=== PATIENT | male | born 1970 | race Caucasian/White ===

== ENCOUNTER 2019-12-17 10:58 | Emergency (ER) | payer BC ==
[2019-12-17] MEDS ORDERED: CYCLOBENZAPRINE 10MG STARTER 3 TAB BTL PO STA (11:36)
[2019-12-17] MEDS ORDERED: MORPHINE SULFATE 4 MG/ML SYRINGE IM STA (11:36)
--- NOTE | 2019-12-17 11:42 | ED ---
Back Pain HPI - General Chief Complaint: Back Pain/Injury Stated Complaint: sharp pain on sides and back Time Seen by Provider: 12/17/19 11:10 Source: patient Limitations: no limitations - History of Present Illness Initial Comments: 49 yo male presenting today for chief complaint of mid to low back pain. Patient states approximately 5 days ago he was doing a lot of heavy lifting/work and noticed back pain he states it has been present for the past 4 days, and increased today when he attempted to pull a heavy object. Patient denies chest pain, SOB, denies urinary symptoms or hematuria. He states it wraps around to the sides b/l increases with bending lifting. Patient denies loss of bowel bladder control urinary retention, IVDU, fever, history of cancer, denies leg swelling hemoptysis, denies numbness of the UE or LE. Patient appears well on arrival no acute distress, Grimaces when he moves. Patient denies any other complaints. Patient showed picture of object he attempted to lift. - Related Data Previous Rx's Medication Instructions Recorded HYDROcodone/APAP 7.5-325MG [[place] 1 tab PO Q6HR PRN #28 tab 02/28/16 7.5-325] Cyclobenzaprine [Flexeril] 10 mg PO TID PRN 7 Days #21 tab 12/17/19 Allergies Allergy/AdvReac Type Severity Reaction Status Date / Time No Known Allergies Allergy Verified 12/17/19 11:05 Review of Systems ROS Statement: Those systems with pertinent positive or pertinent negative responses have been documented in the HPI. ROS Other: All systems not noted in ROS Statement are negative. Past Medical History Past Medical History: Hypertension, Sleep Apnea/CPAP/BIPAP Additional Past Medical History / Comment(s): gout History of Any Multi-Drug Resistant Organisms: None Reported Past Surgical History: Cholecystectomy Past Anesthesia/Blood Transfusion Reactions: No Reported Reaction Past Psychological History: No Psychological Hx Reported Smoking Status: Former smoker Past Alcohol Use History: Occasional Past Drug Use History: None Reported - Past Family History Father Family Medical History: COPD Mother Family Medical History: Cancer Additional Family Medical History / Comment(s): breast General Exam - General Exam Comments Initial Comments: General: The patient is awake and alert, in no distress Eye: Pupils are equal, round and reactive to light, extra-ocular movements are intact. No nystagmus. There is normal conjunctiva bilaterally. No signs of icterus. Ears, nose, mouth and throat: There are moist mucous membranes and no oral lesions. Cardiovascular: There is a regular rate and rhythm. No murmur, rub or gallop is appreciated. Respiratory: Lungs are clear to auscultation, respirations are non-labored, breath sounds are equal. No wheezes, stridor, rales, or rhonchi. Gastrointestinal: Soft, non-distended, non-tender abdomen without masses or organomegaly noted. There is no rebound or guarding present. No CVA tenderness. Musculoskeletal: Upon inspection of the back there are numerous moles, skin tags, otherwise no bruising, swelling, redness, or vesicular lesions noted. No midline tenderness to palpation of the cervical thoracic or lumbar spine. Normal ROM, no tenderness of the UE and LE b/l. Strength 5/5 of the UE and LE b/l. Sensation intact of the UE and LE b/l including the saddle region. DP and radial pulses equal bilaterally 2+. Ambulatory without difficulty. Neurological: A&O x 3. CN II-XII intact grossly, There are no obvious motor or sensory deficits. Coordination appears grossly intact. Speech is normal. Skin: Skin is warm and dry and no rashes or lesions are noted. Psychiatric: Cooperative, appropriate mood & affect, normal judgment. Limitations: no limitations Course Vital Signs 12/17/19 12/17/19 11:05 12:39 Temperature 98.6 F 98.0 F Pulse Rate 80 82 Respiratory 18 20 Rate Blood Pressure 149/98 147/90 O2 Sat by Pulse 95 98 Oximetry Medical Decision Making - Medical Decision Making 49-year-old male presenting today for chief complaint of back pain after lifting heavy object patient states that this occurred approximately 4-5 days ago and pain is persistent attempt to the left another object and pain was initiated a dime. Patient has obvious muscular skeletal tenderness on physical examination. No neurological deficits or vascular deficits. Patient appears well had symptomatically relief after one IM dose of morphine patient given Flexeril. Patient states he can find a ride home. Patient will be discharged with Flexeril instruction to take ibuprofen Tylenol follow-up with primary care provider patient denied any direct trauma or injury. Patient was evaluated by attending provider who is agreeable to this Plan discharge at this time Disposition Clinical Impression: Back strain, Back injury Disposition: HOME SELF-CARE Condition: Good Instructions (If sedation given, give patient instructions): Thoracic Back Strain (ED) Additional Instructions: Please use medication as discussed. Please follow-up with family doctor in the next 2 days. Do not take flexeril the muscle relaxant while driving as discussed. Please return to emergency room if the symptoms increase or worsen or for any other concerns. Prescriptions: Cyclobenzaprine [Flexeril] 10 mg PO TID PRN 7 Days #21 tab PRN Reason: Muscle Spasm Is patient prescribed a controlled substance at d/c from ED?: No Referrals: Donaldo Sarmiento MD [Primary Care Provider] - 1-2 days Time of Disposition: 12:25
[2019-12-17 12:41] VITALS: BP 147/90; PULSE 82; RESP 20; TEMP 98
== END 2019-12-17 12:39 | disposition home or self-care (01) ==
LOC: EC 10:58
DX: S39.012A Strain of muscle, fascia and tendon of lower back, initial encounter (principal); I10 Essential (primary) hypertension; G47.30 Sleep apnea, unspecified; Z87.891 Personal history of nicotine dependence; Z99.89 Dependence on other enabling machines and devices; X58.XXXA Exposure to other specified factors, initial encounter
CPT/HCPCS: 99283; 96372; J2270